=== PATIENT | male | born 1980 | race Caucasian/White ===

== ENCOUNTER → 2023-02-26 12:45 | Outpatient (BNVA) | payer OTHER, SELFPAY | PROVIDERS: Visit Provider Physician Assistant Medical | DX: S29.012A Strain of muscle and tendon of back wall of thorax, initial encounter (principal); S39.012A Strain of muscle, fascia and tendon of lower back, initial encounter; W00.0XXA Fall on same level due to ice and snow, initial encounter | CPT/HCPCS: 71111; 72170; 99203 ==

== ENCOUNTER → 2023-03-03 09:32 | Outpatient (BNVA) | payer OTHER, SELFPAY | PROVIDERS: Visit Provider Physician Assistant Medical | DX: S29.012A Strain of muscle and tendon of back wall of thorax, initial encounter (principal); S39.012A Strain of muscle, fascia and tendon of lower back, initial encounter; W00.0XXA Fall on same level due to ice and snow, initial encounter | CPT/HCPCS: 99213 ==

== ENCOUNTER → 2023-03-25 10:00 | Outpatient (BNVA) | payer OTHER, SELFPAY | PROVIDERS: Visit Provider Physician Assistant Medical | DX: S33.6XXD Sprain of sacroiliac joint, subsequent encounter (principal); S29.012D Strain of muscle and tendon of back wall of thorax, subsequent encounter; W00.0XXD Fall on same level due to ice and snow, subsequent encounter | CPT/HCPCS: 99213 ==

== ENCOUNTER → 2023-04-15 13:22 | Outpatient (BNVA) | payer OTHER, SELFPAY | PROVIDERS: Visit Provider Physician Assistant Medical | DX: S29.012D Strain of muscle and tendon of back wall of thorax, subsequent encounter (principal); S39.012D Strain of muscle, fascia and tendon of lower back, subsequent encounter; W00.0XXD Fall on same level due to ice and snow, subsequent encounter; M46.1 Sacroiliitis, not elsewhere classified; M54.42 Lumbago with sciatica, left side; M54.16 Radiculopathy, lumbar region | CPT/HCPCS: 99213 ==

== ENCOUNTER 2023-06-07 12:54 | Outpatient (REF) | payer OTHER, SELFPAY ==
--- NOTE | ~2023-06-07 | MR_ITS ---
EXAMINATION: MR LUMBAR SPINE WITHOUT CONTRAST CLINICAL INFORMATION: Persistent back pain radiating down left leg COMPARISON: None available. TECHNIQUE: MRI of the lumbar spine was obtained using routine sequences without contrast. FINDINGS: There are 5 nonrib-bearing lumbar-type vertebrae. Normal alignment. No acute bone marrow abnormality. The vertebral body heights are preserved. The disc spaces are also preserved. The visualized spinal cord is normal in caliber. No abnormal cord signal. The conus medullaris terminates at L1-L2. T12-L1: No significant spinal canal or neural foraminal narrowing. L1-L2: No significant spinal canal or neural foraminal narrowing. L2-L3: Bilateral facet arthrosis. No significant spinal canal or neural foraminal narrowing. L3-L4: Bilateral facet arthrosis. No significant spinal canal spinal canal stenosis. Mild bilateral neural foraminal narrowing. L4-L5: Bilateral facet arthrosis. No significant spinal canal stenosis. Mild left greater than right neural foraminal narrowing with the disc abutting the exiting L4 nerve roots bilaterally. L5-S1: Bilateral facet arthrosis. No significant spinal canal or neural foraminal narrowing however the disc abuts the exiting L5 nerve roots bilaterally. The paravertebral soft tissues are unremarkable. 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 No significant spinal canal stenosis or nerve root compression. At L4-L5 and L5-S1 the discs abut the exiting L4 and L5 nerve roots bilaterally.
--- NOTE | ~2023-06-07 | XR_ITS ---
History: Pre-MRI. EXAM: Orbits 3 views. FINDINGS: No metallic foreign body or focal lesion. Paranasal sinuses clear. XR/XR pre mri screening IMPRESSION: No metallic foreign body.
== END 2023-06-07 12:55 | disposition home or self-care (01) ==
LOC: HO.MRI 12:54
PROVIDERS: Visit Provider Internal Medicine
DX: M54.50 Low back pain, unspecified (principal)
CPT/HCPCS: 72148

== ENCOUNTER → 2023-06-30 11:09 | Outpatient (BNVA) | payer OTHER, SELFPAY | PROVIDERS: Visit Provider Physician Assistant Medical | DX: M54.42 Lumbago with sciatica, left side (principal) | CPT/HCPCS: 99213 ==